=== PATIENT | male | born 1970 ===

== ENCOUNTER → 2018-04-12 | Outpatient (CLI) | payer OTHER ==
[2018-04-12 11:31] LABS: Albumin 4.2 g/dL (3.4-5.0); BUN/Creatinine Ratio 13.7; Calcium 8.8 mg/dL (8.5-10.1); Potassium 3.9 mmol/L (3.5-5.1)
[2018-04-12 11:35] LABS: Total Protein 8.3 g/dL (6.4-8.2)
== END | disposition home or self-care (01) ==
LOC: LAB 10:52
DX: S89.92XA Unspecified injury of left lower leg, initial encounter (principal); Y99.0 Civilian activity done for income or pay; Y92.148 Other place in prison as the place of occurrence of the external cause; Y93.02 Activity, running
CPT/HCPCS: 36415; 80053